=== PATIENT | female | born 1945 | race Caucasian/White ===

== ENCOUNTER → 2016-11-12 | Outpatient (CLI) | payer MEDICARE ==
[~2016-11-12] MED LIST: CARVEDILOL 1212.5 MG PO; ETODOLAC400 MG PO; LEVOTHYROXINE0.05 MG PO; LISINOPRIL/HCTZ1 TA3 PO; LORATADINE 10MG10 M1 PO; METFORMIN1000 MG PO; PREMARIN 0.3MG0.3 MG PO
[2016-11-12 13:11] LABS: BUN 29 mg/dL (7-18); GFR (ESTIMATED) 32 ML/MIN (59-)
== END ==
LOC: LAB 11:20
PROVIDERS: Nurse Practitioner Obstetrics & Gynecology
DX: R10.2 Pelvic and perineal pain (principal)

== ENCOUNTER → 2017-04-01 | Outpatient (CLI) | payer MEDICARE ==
[~2017-04-01] MED LIST changes: +GLIMEPIRIDE 4MG4 MG PO; +JANUVIA100 MG PO; +LISINOPRIL HCTZ1 TAB PO; +MECLIZINE HYDRO25 M2 PO; +MELOXICAM15 MG PO; +ZOFRAN ODT4 MG PO
--- NOTE | 2017-04-01 22:08 | RADIOLOGY REPORT PS360 ---
PROCEDURE: 2-D M-mode and color Doppler study INDICATIONS FOR THE TEST: Chest pain COPD Heart Murmur Tobacco Smoking Palpitations Fatigue SyncopeX Edema Hypertension Diabetes MellitusX Rheumatic Fever SOB MITCHELL Obesity Hyperlipidemia Family History HD Additional History PATIENT INFORMATION HEIGHT: 66 WEIGHT:190 GENDER: Female B/P:120/70 2-D/M-MODE INTERPRETATION: 2-D MEASUREMENTS OBSERVED VALUES IN CMS Right Ventricular Dimension (RVDd) 2.3 Interventricular Septum (Thickness)(IVsd) .8 Left Ventricular Internal Dimensions(LVIDd) 5.5 Left Ventricular Posterior Wall (Thickness)(LVPWd) .8 Aortic Root 3.0 Aortic Cusp Separation 2.0 Left Atrial Dimensions (LAD) 3.3 2D 1. Left atrium is mildly enlarged, left ventricle is normal size, there is mild concentric left ventricular hypertrophy, visually estimated ejection fraction of 55% with no obvious regional wall motion abnormality. 2. The right atrium and right ventricle are normal size and contractility. 3. The aortic valve is minimally thickened and fibrosed. 4. The mitral and tricuspid valve are grossly normal. 5. The pulmonic valve is poorly visualized. 6. There is trivial pericardial effusion noted. DOPPLER INTERROGATION: Doppler interrogation of the aortic mitral and tricuspid valvular presence of mild mitral and tricuspid regurgitation, tricuspid and jet velocity insufficient for calculation of the right ventricular systolic pressure, grade 1 diastolic dysfunction seen with tissue Doppler evidence of raised left atrial pressure. CONCLUSION: 1. Early enlarged left atrium, normal left ventricular size, mild concentric left ventricular hypertrophy, visually estimated ejection fraction 55% with no obvious regional wall motion abnormality, grade 1 diastolic dysfunction seen with tissue Doppler evidence of raised left atrial pressure. 2. Mild mitral and tricuspid regurgitation. 3. Trivial pericardial effusion noted.
--- NOTE | 2017-04-02 10:39 | RADIOLOGY REPORT PS360 ---
MRI-L-SPINE W/O HISTORY: Left-sided low back pain, right-sided low back pain, numbness in left foot, follow-up abnormal CT scan, degenerative disc disease, lumbar spondylosis LOW BACK PAIN RADIATING TO LEFT ORDERING PHYSICIAN: Ad Lucero MD PATIENT AGE: 71 years COMPARISON: 03/25/2017 TECHNIQUE: Standard multiplanar multiecho sequences are performed without contrast. 3-D MIP and myelographic images are also rendered and reviewed FINDINGS: There is normal alignment. Spinal cord ends at the L1-L2 level. A T1 and T2 hyperintensity is noted at the L1 vertebral body on the right at 17 mm consistent with a lipoma/hemangioma. L1-L2 and L2-L3 have an unremarkable appearance. L3-L4: Severe degenerative disc disease with decrease in the disc space. There is a broad-based bulging disc at L3-L4 causing moderate bilateral lateral recess and foraminal narrowing slightly greater on the right. There is decrease T1 and T2 signal at the endplate at L3-L4 with prominent anterior bulging disc also at that level. There is 3 mm retrolisthesis of L3. Facet and ligamentum hypertrophy are also noted. There is loss of the disc space with some irregularity of the endplates. This endplate irregularity is greater at the L4 superior endplate. There is only slight increased T2 signal within the central aspect of the disc L4-5: Mild concentric bulging disc with mild facet and ligamentum flavum hypertrophy with mild bilateral lateral recess and foraminal narrowing slightly greater on the left. Fluid is present within the facets on the right at that level. L5-S1: Mild degenerative disc disease with bulging disc along with facet and ligamentum flavum hypertrophy with moderate left-sided foraminal narrowing. Probable 9 mm cyst involving the left kidney. IMPRESSION: 1. Spondylosis of lumbar spine with degenerative disc disease and facet and ligamentum hypertrophy as detailed above. Please see above for detailed description at each level. 2. There is severe degenerative disc disease at L3-L4 with loss of the disc space along with prominent anterior and posterior bulging disc. There is cortical irregularity of the endplates however, one would expect greater increased T2 signal this were due to acute spondylodiscitis. Old healed spondylodiscitis is a consideration. Please correlate with patient's sedimentation rate and with patient's symptoms. There is bilateral lateral recess and foraminal narrowing at this level from the posterior bulging disc and the facet and ligamentum hypertrophy. This is greater on the right. 3. Bulging disc at L4-5 slightly eccentric to the left with left-sided foraminal narrowing and facet and ligamentum hypertrophy 4. Left-sided foraminal narrowing at L5-S1 due to facet hypertrophic change. 5. No extruded herniated disc evident
== END ==
LOC: RT 14:03
DX: M54.5 Low back pain (principal); R55 Syncope and collapse